=== PATIENT | female | born 1950 | race Two or more races ===

== ENCOUNTER 2016-05-18 10:18 | Emergency (ER) | payer SELFPAY ==
[~2016-05-18] VITALS: Ht 157.5 cm; Wt 72.6 kg
[2016-05-18 10:50] VITALS: BP 147/76
== END 2016-05-18 10:51 | disposition home or self-care (01) ==
LOC: ER 10:21
DX: R42 Dizziness and giddiness (principal)
CPT/HCPCS: 99283; A4606; Z7610